=== PATIENT | male | born 1980 ===

== ENCOUNTER 2019-01-30 10:39 | Emergency (ER) | payer OTHER ==
[2019-01-30 11:37] LABS: SQUAMOUS EPITHIAL < 1 /hpf (0-5); URINE BILIRUBIN NEGATIVE (NEGATIVE); URINE BLOOD NEGATIVE (NEGATIVE); URINE CLARITY Clear (Clear); URINE COLOR Amber (YELLOW); URINE GLUCOSE (UA) 3+ mg/dL (Normal); URINE LEUKOCYTE ESTERASE NEG Leu/uL (Negative); URINE PROTEIN 1+ mg/dL (NEGATIVE)
[2019-01-30 11:42] LABS: BASO % 0.2 % (0.0-2.0); EOS % 0.7 % (0.0-4.0); HEMOGLOBIN 16.9 g/dL (12.0-18.0); LYMPH # 0.7 K/uL (1.0-4.3); LYMPH % 11.9 % (20.0-40.0); MEAN CELL VOLUME 89.3 fL (80.0-94.0); MEAN CORPUSCULAR HEMOGLOBIN 31.1 pg (27.0-31.0); MEAN CORPUSCULAR HGB CONC 34.8 g/dL (33.0-37.0); MEAN PLATELET VOLUME 9.7 fL (7.2-11.7); MONO # 0.4 K/uL (0.0-0.8); MONO % 7.5 % (0.0-10.0); NEUT # 4.7 K/uL (1.8-7.0); NEUT % 79.7 % (50.0-75.0); RBC 5.44 Mil/uL (4.40-5.90); RED CELL DISTRIBUTION WIDTH 12.8 % (11.5-14.5); WHITE BLOOD COUNT 5.9 K/uL (4.8-10.8)
[2019-01-30 11:45] LABS: ALB/GLOB RATIO 1.4 (1.0-2.1); ALBUMIN 5.3 g/dL (3.5-5.0); ALT/SGPT 164 U/L (21-72); AST/SGOT 114 U/L (17-59); BLOOD UREA NITROGEN 21 mg/dL (9-20); CALCIUM 9.9 mg/dl (8.6-10.4); GFR NON-AFRICAN AMERICAN > 60; LIPASE 49 U/L (23-300)
[2019-01-30] MEDS ORDERED: Sodium Chloride 0.9% 1,000 ML IV STA (12:03)
[2019-01-30] MEDS ORDERED: Sodium Chloride 0.9% 1,000 ML ONE (12:16)
--- NOTE | 2019-01-30 13:36 | US ---
Date of service: 01/30/2019 HISTORY: epigastric RUQ abd pain COMPARISON: None. TECHNIQUE: Sonographic evaluation of the right upper quadrant of the abdomen. FINDINGS: LIVER: Measures 16.2 cm in length. Diffusely increased echogenicity of the liver parenchyma. Consistent with fatty infiltration. Smooth contour. No mass. No biliary dilatation. GALLBLADDER: Unremarkable. No gallstones. COMMON BILE DUCT: Measures 5 mm. No stones. No dilatation. PANCREAS: Unremarkable as visualized. No mass. No ductal dilatation. RIGHT KIDNEY: Measures 12.9 cm in length. Normal echogenicity. No calculus, mass, or hydronephrosis. AORTA: No aneurysmal dilatation. IVC: Unremarkable. OTHER FINDINGS: None . IMPRESSION: Fatty liver. No evidence of cholelithiasis or cholecystitis.
--- NOTE | 2019-01-30 13:41 | C.PDOC ---
History Of Present Illness 38 y/o male presents to the ED complaining of epigastric pain for the past 3 days. Patient reports associated nausea, with several episodes of vomiting per day. Vomitus is non-bilious, non-bloody, and last episode was this morning. No diarrhea. Otherwise patient denies any fevers, chills, dark or bloody stools. Time Seen by Provider: 01/30/19 10:56 Chief Complaint (Nursing): Abdominal Pain History Per: Patient History/Exam Limitations: no limitations Onset/Duration Of Symptoms: Days (x 3) Current Symptoms Are (Timing): Still Present Location Of Pain/Discomfort: Epigastric Quality Of Discomfort: "Pain" Associated Symptoms: Nausea, Vomiting Past Medical History Reviewed: Historical Data, Nursing Documentation, Vital Signs Vital Signs: Last Vital Signs Temp 98.1 F 01/30/19 10:55 Pulse 92 H 01/30/19 10:55 Resp 18 01/30/19 10:55 BP 135/79 01/30/19 10:55 Pulse Ox 96 01/30/19 10:55 - Medical History PMH: No Chronic Diseases Surgical History: No Surg Hx Family History: States: No Known Family Hx - Social History Hx Alcohol Use: Yes Hx Substance Use: No - Immunization History Hx Tetanus Toxoid Vaccination: No Hx Influenza Vaccination: No Hx Pneumococcal Vaccination: No Review Of Systems Except As Marked, All Systems Reviewed And Found Negative. Constitutional: Negative for: Fever, Chills Cardiovascular: Negative for: Chest Pain, Palpitations Respiratory: Negative for: Shortness of Breath Gastrointestinal: Positive for: Nausea, Vomiting, Abdominal Pain. Negative for: Diarrhea, Melena, Hematochezia Genitourinary: Negative for: Dysuria, Hematuria Musculoskeletal: Negative for: Back Pain Neurological: Negative for: Weakness, Numbness Physical Exam - Physical Exam Appears: Non-toxic, No Acute Distress Skin: Warm, Dry, No Rash Head: Atraumatic, Normacephalic Eye(s): bilateral: Normal Inspection, PERRL, EOMI Oral Mucosa: Moist Neck: Normal ROM Chest: Symmetrical Cardiovascular: Rhythm Regular, No Murmur Respiratory: Normal Breath Sounds, No Rales, No Rhonchi, No Wheezing Gastrointestinal/Abdominal: Soft, Tenderness (to the epigastrium and RUQ), No Distention, No Guarding, No Rebound Back: No CVA Tenderness, No Vertebral Tenderness Extremity: Bilateral: Atraumatic, Normal Color And Temperature, Normal ROM Neurological/Psych: Oriented x3, Normal Speech Gait: Steady ED Course And Treatment - Laboratory Results Result Diagrams: 01/30/19 11:30 01/30/19 11:30 Lab Results: Total Bilirubin 1.8 mg/dL (0.2-1.3) H 01/30/19 11:30 AST 114 U/L (17-59) H 01/30/19 11:30 ALT 164 U/L (21-72) H 01/30/19 11:30 Alkaline Phosphatase 86 U/L (38-126) 01/30/19 11:30 Total Protein 9.0 g/dL (6.3-8.3) H 01/30/19 11:30 Albumin 5.3 g/dL (3.5-5.0) H 01/30/19 11:30 Globulin 3.7 gm/dL (2.2-3.9) 01/30/19 11:30 Albumin/Globulin Ratio 1.4 (1.0-2.1) 01/30/19 11:30 Lipase 49 U/L (23-300) 01/30/19 11:30 Urine Color Kirstin (YELLOW) 01/30/19 11:30 Urine Clarity Clear (Clear) 01/30/19 11:30 Urine pH 6.0 (5.0-8.0) 01/30/19 11:30 Ur Specific Wendell 1.036 (1.003-1.030) H 01/30/19 11:30 Urine Protein 1+ mg/dL (NEGATIVE) H 01/30/19 11:30 Urine Glucose (UA) 3+ mg/dL (Normal) H 01/30/19 11:30 Urine Ketones 1+ mg/dL (NEGATIVE) H 01/30/19 11:30 Urine Blood Negative (NEGATIVE) 01/30/19 11:30 Urine Nitrate Negative (NEGATIVE) 01/30/19 11:30 Urine Bilirubin Negative (NEGATIVE) 01/30/19 11:30 Urine Urobilinogen 4.0 mg/dL (0.2-1.0) 01/30/19 11:30 Ur Leukocyte Esterase Neg Pantera/uL (Negative) 01/30/19 11:30 Urine WBC (Auto) < 1 /hpf (0-5) 01/30/19 11:30 Urine RBC (Auto) 1 /hpf (0-3) 01/30/19 11:30 Ur Squamous Epith Cells < 1 /hpf (0-5) 01/30/19 11:30 O2 Sat by Pulse Oximetry: 96 (on RA) Pulse Ox Interpretation: Normal - CT Scan/US Abdominal US Other Rad Studies (CT/US): Read By Radiologist, Radiology Report Reviewed CT/US Interpretation: Accession No. : [id number]. Patient Name / ID : LIVIA LI / [id number]. Exam Date : 01/30/2019 12:56:19 ( Approved ). Study Comment : Sex / Age : M / 38Y. Creator : José Ridley MD. Dictator : José Ridley MD. Advanced Practice Registered Nurse : Specifications Checker : José Ridley MD. Approver2 : Report Date : 01/30/2019 13:32:54. My Comment : . Date of service: 01/30/2019. HISTORY: epigastric RUQ abd pain. COMPARISON: None. TECHNIQUE: Sonographic evaluation of the right upper quadrant of the abdomen. FINDINGS: LIVER: Measures 16.2 cm in length. Diffusely increased echogenicity of the liver parenchyma. Consistent with fatty infiltration. Smooth contour. No mass. No biliary dilatation. GALLBLADDER: Unremarkable. No gallstones. COMMON BILE DUCT: Measures 5 mm. No stones. No dilatation. PANCREAS: Unremarkable as visualized. No mass. No ductal dilatation. RIGHT KIDNEY: Measures 12.9 cm in length. Normal echogenicity. No calculus, mass, or hydronephrosis. AORTA: No aneurysmal dilatation. IVC: Unremarkable. OTHER FINDINGS: None . IMPRESSION: Fatty liver. No evidence of cholelithiasis or cholecystitis. Progress Note: Blood work and urine sent to the lab for analysis. Ordered Abdominal US to r/o cholecystitis. Patient given 1L IV fluids, 40 mg IV Pr otonix, and 4 mg IV Zofran. Labs and imaging reviewed - no acute abdominal pathology. On re-evaluation patient is resting comfortably and reports improvement. Will d/c patinet home with rx for pepcid and zofran. Reevaluation Time: 16:15 Reassessment Condition: Improved Disposition - Disposition Referrals: [facility] [Outside] Disposition: HOME/ ROUTINE Disposition Time: 16:20 Condition: IMPROVED Additional Instructions: Follow up with Clinic within 1-2 days. Return to ED if feel worse. Prescriptions: Famotidine [Pepcid] 20 mg PO BID #20 tab Ondansetron ODT [Zofran ODT] 1 odt PO BID PRN #6 odt PRN Reason: Nausea/Vomiting Instructions: Acute Abdomen (Belly Pain), Adult (DC) Forms: [employer] (Cameroonian) Print Language: ALGERIAN - Clinical Impression Clinical Impression: Abdominal pain - PA / MONOTYPE MACHINIST / Resident Statement MD/DO has reviewed & agrees with the documentation as recorded. - Scribe Statement The provider has reviewed the documentation as recorded by the Scribdivina Daniel All medical record entries made by the Armaanibdivina were at my direction and personally dictated by me. I have reviewed the chart and agree that the record accurately reflects my personal performance of the history, physical exam, medical decision making, and the department course for this patient. I have also personally directed, reviewed, and agree with the discharge instructions and disposition.
[2019-01-30 16:40] VITALS: BP 147/91; PULSE 91; RESP 18; TEMP 98.5
[2019-01-31 20:06] VITALS: O2SAT 96
== END 2019-01-30 16:40 | disposition home or self-care (01) ==
LOC: EDBD 10:39 → C.ER 10:39
DX: R10.9 Unspecified abdominal pain (principal)
CPT/HCPCS: 76705; 80053; 81001; 83690; 85025; 96361; 96374; 96375; 99285; C9113; J2405; J7030